=== PATIENT | male | born 1975 | race Caucasian/White ===

== ENCOUNTER 2018-02-12 13:45 | Emergency (ER) | payer BC, OTHER ==
[2018-02-12 15:30] LABS: BASO # 0.1 10^3/uL (0.0-0.2); BASO % 0.5 % (0.0-1.0); EOS # 0.2 10^3/uL (0.0-0.50); EOS % 1.6 % (0.0-3.0); HEMATOCRIT 45.1 % (42.0-52.0); HEMOGLOBIN 15.4 g/dl (13.5-17.5); IMMATURE GRANULOCYTE % 0.5 % (0-3.0); LYMPH # 2.3 10^3/uL (1.5-4.5); LYMPH % 20.9 % (24.0-44.0); MEAN CORPUSCULAR HEMOGLOBIN 26.6 pg (27.0-33.0); MEAN CORPUSCULAR HGB CONC 34.1 g/dl (32.0-36.5); MEAN CORPUSCULAR VOLUME 77.9 fl (80.0-96.0); MONO # 0.6 10^3/uL (0.0-0.8); MONO % 5.6 % (0.0-5.0); NEUTROPHILS # 7.8 10^3/uL (1.8-7.7); NEUTROPHILS % 70.9 % (36.0-66.0); PLATELET COUNT, AUTOMATED 248 10^3/uL (150-450); RED BLOOD COUNT 5.79 10^6/uL (4.30-6.10); RED CELL DISTRIBUTION WIDTH 13.7 % (11.5-14.5); WHITE BLOOD COUNT 10.9 10^3/uL (4.0-10.0)
[2018-02-12 16:03] LABS: ALBUMIN 4.4 GM/DL (3.2-5.2); ALBUMIN/GLOBULIN RATIO 1.26 (1.00-1.93); ALKALINE PHOSPHATASE 72 U/L (45-117); ALT/SGPT 44 U/L (12-78); ANION GAP 12 MEQ/L (8-16); AST/SGOT 29 U/L (7-37); BILIRUBIN,DIRECT < 0.1 MG/DL (0.0-0.2); BILIRUBIN,TOTAL 0.4 MG/DL (0.2-1.0); BLOOD UREA NITROGEN 17 MG/DL (7-18); CARBON DIOXIDE LEVEL 26 MEQ/L (21-32); CHLORIDE LEVEL 106 MEQ/L (98-107); CPK CREATINE PHOSPHOKINASE 180 U/L (39-308); CREATININE FOR GFR 1.32 MG/DL (0.70-1.30); GLOMERULAR FILTRATION RATE > 60.0 (>60); GLUCOSE, FASTING 166 MG/DL (70-100); LIPASE 218 U/L (73-393); MB/CK RELATIVE INDEX 1.17 (< OR =4); POTASSIUM SERUM 3.4 MEQ/L (3.5-5.1); SODIUM LEVEL 144 MEQ/L (136-145); TOTAL PROTEIN 7.9 GM/DL (6.4-8.2); TROPONIN I < 0.02 NG/ML (< 0.10)
[2018-02-12] MEDS: LORazepam 2 MG/ML VIAL (J2060) IV (16:07)
[2018-02-12] MEDS: MECLIZINE 25 MG TABLET PO ×2 (16:07→20:34)
[2018-02-12] MEDS: ONDANSETRON 4MG/2ML VIAL (J2405) IV (16:07)
[2018-02-12] MEDS: NS 1,000 ML IV (17:18)
[2018-02-12] MEDS: POTASSIUM CHLORIDE 10 MEQ SR TABLET PO (17:19)
[2018-02-12] MEDS ORDERED: ISOVUE-370 76% 100ML VIAL (Q9967) As Ordered (17:20)
[2018-02-12 17:55] LABS: INR 1.06; PROTHROMBIN TIME 13.9 SECONDS (12.1-14.4)
[2018-02-12] MEDS ORDERED: ONDANSETRON 4 MG ORAL DISINTEGRATING TAB (Q0162 PER 1MG) PO (20:00)
[2018-02-12] MEDS ORDERED: MECLIZINE 25 MG TABLET PO (20:00)
[2018-02-12] MEDS: ONDANSETRON 4 MG ORAL DISINTEGRATING TAB (Q0162 PER 1MG) PO (20:35)
== END 2018-02-12 20:45 | disposition home or self-care (01) ==
LOC: M ED 13:45
DX: R42 Dizziness and giddiness (principal); R07.89 Other chest pain; I10 Essential (primary) hypertension; R00.1 Bradycardia, unspecified; R78.5 Finding of other psychotropic drug in blood; F41.9 Anxiety disorder, unspecified; F32.9 Major depressive disorder, single episode, unspecified; F43.10 Post-traumatic stress disorder, unspecified; Z87.442 Personal history of urinary calculi; Z79.899 Other long term (current) drug therapy
CPT/HCPCS: J2405

== ENCOUNTER 2019-07-21 11:11 | Emergency (ER) | payer BC, OTHER ==
[~2019-07-21] VITALS: Ht 165.1 cm; Wt 107.4 kg
[~2019-07-21 11:11] MED LIST: GEMF600T5 PO; LISI-538 PO; LISI40TA PO; LOSA100T50 PO; MECL1TAB31 PO; METO1TAB87 PO; ZOFR4TAB16 PO; ZOLO100T PO
[2019-07-21 12:05] LABS: BASO % 0.4 % (0.0-1.0); EOS # 0.3 10^3/uL (0.0-0.5); EOS % 3.7 % (0.0-3.0); HEMATOCRIT 42.6 % (42.0-52.0); HEMOGLOBIN 14.6 g/dl (13.5-17.5); LYMPH # 0.9 10^3/uL (1.5-5.0); MEAN CORPUSCULAR HEMOGLOBIN 26.5 pg (27.0-33.0); MEAN CORPUSCULAR HGB CONC 34.3 g/dl (32.0-36.5); MEAN CORPUSCULAR VOLUME 77.3 fl (80.0-96.0); MONO # 0.3 10^3/uL (0.0-0.8); MONO % 3.7 % (0.0-5.0); NEUTROPHILS # 7.4 10^3/uL (1.5-8.5); NEUTROPHILS % 81.4 % (36.0-66.0); PLATELET COUNT, AUTOMATED 191 10^3/uL (150-450); RED BLOOD COUNT 5.51 10^6/uL (4.30-6.10); WHITE BLOOD COUNT 9.1 10^3/uL (4.0-10.0)
[2019-07-21 12:28] LABS: ALBUMIN 4.5 GM/DL (3.2-5.2); ALT/SGPT 52 U/L (12-78); BILIRUBIN,DIRECT 0.2 MG/DL (0.0-0.2); BILIRUBIN,TOTAL 0.7 MG/DL (0.2-1.0); BLOOD UREA NITROGEN 10 MG/DL (7-18); CALCIUM LEVEL 8.8 MG/DL (8.5-10.1); CARBON DIOXIDE LEVEL 32 MEQ/L (21-32); CHLORIDE LEVEL 103 MEQ/L (98-107); CREATININE FOR GFR 1.19 MG/DL (0.70-1.30); GLOMERULAR FILTRATION RATE > 60.0 (>60); GLUCOSE, FASTING 193 MG/DL (70-100); LIPASE 174 U/L (73-393); POTASSIUM SERUM 3.3 MEQ/L (3.5-5.1); SODIUM LEVEL 141 MEQ/L (136-145); TOTAL PROTEIN 7.3 GM/DL (6.4-8.2)
[2019-07-21] MEDS ORDERED: BUPR-321 PO (12:48)
[2019-07-21] MEDS ORDERED: AMLO5TAB6 (12:48)
[2019-07-21] MEDS ORDERED: MORPHINE 4 MG/ML 1ML VIAL/SYRINGE (J2270) IV ONE (13:15)
[2019-07-21] MEDS ORDERED: ONDANSETRON 4MG/2ML VIAL (J2405) IV ONE (13:15)
[2019-07-21] MEDS ORDERED: NS 1,000 ML IV ONE (13:15)
[2019-07-21] MEDS ORDERED: PANTOPRAZOLE 40MG INJ (PROTONIX) (C9113) IV ONE (13:15)
--- NOTE | 2019-07-21 13:48 | REP ---
Abdominal right upper quadrant ultrasound for upper abdominal pain: Comparison is the abdomen/pelvis CT of 02/12/2018. There is no cholelithiasis, gallbladder wall thickening or pericholecystic fluid. There is no intrahepatic or extrahepatic biliary duct dilatation. The common biliary duct measures 3.6 ml in diameter. The hepatic parenchyma is acoustically dense and difficult to penetrate. This is compatible with hepato steatosis. No hepatic masses are identified. The pancreas is mostly obscured by bowel gas. Right kidney measures 14 x 1 x 5 point of by 6 x 4 cm and is normal size. There is no right renal solid or cystic mass. There is no right renal hydronephrosis or calculus. There is no right upper quadrant abdominal ascites. Impression: There is no cholelithiasis, gallbladder wall thickening or pericholecystic fluid. The pancreas is obscured by bowel gas. Otherwise, negative right upper quadrant abdominal ultrasound. Electronically Signed by Steven Justice MD 07/21/2019 01:39 P
[2019-07-21] MEDS ORDERED: ISOVUE-370 76% 100ML VIAL (Q9967) As Ordered ONE (14:12)
--- NOTE | 2019-07-21 14:50 | REP ---
CT ABDOMEN PELVIS WITH IV BUT WITHOUT ORAL CONTRAST: HISTORY: Severe upper abdominal pain. Comparison CT study February 12, 2018. CT CONTRAST DOSE: 100 mL of intravenous Isovue [address] FINDINGS: Preliminary digital ict customer support officer radiograph demonstrates an unremarkable bowel gas pattern. The lung bases are clear. There is mild to moderate diffuse fatty infiltration of the liver. The liver is at the upper range of normal in size with a craniocaudal span in the midclavicular line of 16 cm. No focal liver lesion is seen. The spleen is moderately enlarged measuring this 17.9 cm in greatest anteroposterior dimension. No focal splenic lesion is appreciated. No adrenal lesion is observed on either side. No abnormality is noted in the pancreas or in the gallbladder. The kidneys enhance symmetrically. There is no evidence of intrarenal stone or hydronephrosis on either side. There is an accessory lower pole left renal artery. No retroperitoneal mass or adenopathy is observed. Small and large intestinal bowel loops are normal in the upper abdomen. Pelvic CT images demonstrate a few dystrophic calcifications in the prostate gland. Seminal vesicles and urinary bladder are unremarkable. A normal appendix is seen projecting medially from the cecum. There is no evidence of free air or free fluid. IMPRESSION: Hepatosplenomegaly. Fatty infiltration of the liver. No evidence of urinary tract calculus or hydronephrosis. Normal appendix seen. Electronically Signed by Johan Munoz MD 07/21/2019 03:53 P
[2019-07-21] MEDS ORDERED: GI COCKTAIL 50ML BTL(HYOSCYAMINE/MAALOX/LIDOCAINE VISCOUS)(1:3:1) PO ONE (15:15)
[2019-07-21] MEDS ORDERED: CARA1TAB6 PO (15:54)
[2019-07-21] MEDS ORDERED: PROT1TAB2 PO (15:54)
[2019-07-21 16:15] VITALS: BP 168/104
--- NOTE | 2019-07-22 16:29 | ED PDOC ---
Post-Departure Follow-Up certified letter sent to pt re formal read of ct abd/p. needs to be faxed to pcp . find out who pcp is and fax for fu. if no pcp refer to [facility] and fax Bela Mack MD Jul 22, 2019 16:29
== END 2019-07-21 16:19 | disposition home or self-care (01) ==
LOC: M ED 11:11
DX: K29.70 Gastritis, unspecified, without bleeding (principal); R16.2 Hepatomegaly with splenomegaly, not elsewhere classified; K76.0 Fatty (change of) liver, not elsewhere classified; I10 Essential (primary) hypertension; K21.9 Gastro-esophageal reflux disease without esophagitis; F43.10 Post-traumatic stress disorder, unspecified; Z79.899 Other long term (current) drug therapy
CPT/HCPCS: 74177; 76705; 80048; 80076; 81001; 83690; 85025; 96361; 96374; 96375; 99284; C9113; J2270; J2405; Q9967

== ENCOUNTER 2023-07-24 10:56 | Inpatient (IN) | payer BC, OTHER ==
[2023-07-24] VITALS (18 sets, daily range): BP systolic 133–214; BP diastolic 66–127; TEMP 96.3–97; O2SAT 87–98
[~2023-07-24] VITALS: Ht 162.6 cm; Wt 105.9 kg
[~2023-07-24 10:56] MED LIST changes: +AMLO1TAB24; +BUPR-364 PO; +CARA1TAB6 PO; -LISI-538 PO; +LISI20TA33 PO; -LISI40TA PO; +LISI40TA4 PO; +LOSA100T46 PO; -LOSA100T50 PO; +MECL-209 PO; -MECL1TAB31 PO; +PROT1TAB2 PO
[2023-07-24 12:08] LABS: BASO % 0.3 % (0.0-1.0); EOS # 0.2 10^3/uL (0.0-0.5); EOS % 2.5 % (0.0-3.0); HEMOGLOBIN 14.7 g/dl (13.5-17.5); LYMPH % 14.9 % (24.0-44.0); MEAN CORPUSCULAR HEMOGLOBIN 26.9 pg (27.0-33.0); MEAN CORPUSCULAR VOLUME 76.8 fl (80.0-96.0); MONO # 0.3 10^3/uL (0.0-0.8); MONO % 4.8 % (2.0-8.0); NEUTROPHILS # 5.3 10^3/uL (1.5-8.5); NEUTROPHILS % 77.1 % (36.0-66.0); PLATELET COUNT, AUTOMATED 144 10^3/uL (150-450); RED BLOOD COUNT 5.47 10^6/uL (4.30-6.10); WHITE BLOOD COUNT 6.9 10^3/uL (4.0-10.0)
[2023-07-24] MEDS ORDERED: LOSA50TA28 PO (12:08)
[2023-07-24 12:36] LABS: CK-MB VALUE MASS 4.2 NG/ML (<3.6); LIPASE 67 U/L (12-53)
[2023-07-24 12:38] LABS: ALBUMIN 4.1 G/DL (3.2-5.2); ALKALINE PHOSPHATASE 70 U/L (46-116); ALT/SGPT 36 U/L (7.0-40); AST/SGOT 32 U/L (<34); BILIRUBIN,DIRECT 0.3 MG/DL (<0.4); BILIRUBIN,TOTAL 1.1 MG/DL (0.3-1.2); BLOOD UREA NITROGEN 13 MG/DL (9-23); CALCIUM LEVEL 8.7 MG/DL (8.5-10.1); CARBON DIOXIDE LEVEL 35 MMOL/L (20-31); CHLORIDE LEVEL 102 MMOL/L (98-107); CREATININE FOR GFR 1.16 MG/DL (0.70-1.30); GLOMERULAR FILTRATION RATE > 60.0 (>60); GLUCOSE, FASTING 179 MG/DL (60-100); POTASSIUM SERUM 3.1 MMOL/L (3.5-5.1); SODIUM LEVEL 142 MMOL/L (136-145); TOTAL PROTEIN 6.9 G/DL (5.7-8.2)
[2023-07-24 12:40] LABS: FREE T4 1.06 NG/DL (0.89-1.76); THYROID STIMULATING HORMONE 3.136 uIU/ML (0.55-4.78)
[2023-07-24 12:44] LABS: CPK CREATINE PHOSPHOKINASE 272 U/L (46-171); MB/CK RELATIVE INDEX 1.54 (< OR =4)
[2023-07-24 13:41] LABS: CK-MB VALUE MASS 3.8 NG/ML (<3.6)
[2023-07-24 13:45] LABS: MB/CK RELATIVE INDEX 1.61 (< OR =4)
[2023-07-24] MEDS: SPIRONOLACTONE 25 MG TAB PO ONE (15:33)
[2023-07-24] MEDS: hydrALAZINE 20MG/ML 1ML VIAL IV STA (16:35)
[2023-07-24] MEDS ORDERED: ISOVUE-370 76% 100ML VIAL As Ordered ONE (16:37)
[2023-07-24] MEDS: LABETALOL 100MG/20ML VIAL IV PRN (17:22)
[2023-07-24] MEDS ORDERED: LEVALBUTEROL 1.25MG 0.5ML CONCENTRATE NEB NEB PRN (17:25)
[2023-07-24] MEDS ORDERED: D5W/0.9% SODIUM CHLORIDE 1,000 ML IV SCH (17:25)
[2023-07-24] MEDS ORDERED: ONDANSETRON 4MG 2ML VIAL IV PRN (17:25)
[2023-07-24] MEDS ORDERED: PERCOCET 5MG/325MG TAB PO PRN ×2 (17:25)
[2023-07-24] MEDS ORDERED: BISACODYL 10MG SUPP PR PRN (17:25)
[2023-07-24 17:38] LABS: CHOLESTEROL LEVEL 219 MG/DL (<200); CHOLESTEROL RISK RATIO 7.57 (<5); HDL CHOLESTEROL 28.9 MG/DL (>40); LDL CHOLESTEROL 131.5 MG/DL (<100); NON-HDL-C 190.1 MG/DL; TRIGLYCERIDES LEVEL 293 MG/DL (<150)
[2023-07-24] MEDS: KCL 20MEQ IN D5/NS 1000ML 1,000 ML IV SCH (18:11)
[2023-07-24 18:20] LABS: ABG BASE EXCESS 4.6 (-2.0-2.0); ABG O2 SATURATION 94.7 % (95.0-99.0); ABG PARTIAL PRESSURE CO2 37.6 mmHg (35.0-45.0); ABG PARTIAL PRESSURE O2 66.4 mmHg (75.0-100.0); ABG STANDARD HCO3 28.5 MMOL/L. (22.0-26.0); ABG TOTAL CO2 29.2 MMOL/L (22.0-29.0)
[2023-07-24] MEDS ORDERED: LORazepam 2 MG/ML 1ML VIAL IV ONE (18:35)
[2023-07-24] MEDS: ALPRAZolam 0.5 MG TAB PO PRN (18:44)
[2023-07-24] MEDS: LEVALBUTEROL 1.25MG 0.5ML CONCENTRATE NEB NEB SCH (19:27)
[2023-07-24] MEDS: HEPARIN SOD (PORCINE) 5000UNITS/ML 1ML VIAL/SYRINGE SC SCH (20:09)
[2023-07-24] MEDS: niCARdipine IV 40 MG in IV 1 EA IV SCH (20:15)
[2023-07-24] MEDS: DOCUSATE SODIUM 100MG CAPSULE PO SCH (20:17)
[2023-07-24 22:28] LABS: BLOOD UREA NITROGEN 14 MG/DL (9-23); CALCIUM LEVEL 8.3 MG/DL (8.5-10.1); CARBON DIOXIDE LEVEL 33 MMOL/L (20-31); CHLORIDE LEVEL 106 MMOL/L (98-107); CREATININE FOR GFR 1.14 MG/DL (0.70-1.30); GLOMERULAR FILTRATION RATE > 60.0 (>60); GLUCOSE, FASTING 152 MG/DL (60-100); MAGNESIUM LEVEL 1.7 MG/DL (1.8-2.4); POTASSIUM SERUM 2.8 MMOL/L (3.5-5.1); SODIUM LEVEL 141 MMOL/L (136-145)
[2023-07-24] MEDS: POTASSIUM CHLORIDE 10MEQ SR TABLET PO ONE (23:09)
[2023-07-24] MEDS: MAG SULF 1GM/100ML (MAG RUN) 1 GM in IV 1 EA IV ONE (23:09)
[2023-07-24] MEDS: KCL 40MEQ IN D5/NS 1000ML 1,000 ML IV SCH (23:22)
[2023-07-25] VITALS (32 sets, daily range): BP systolic 139–196; BP diastolic 70–110; TEMP 97–98.6; O2SAT 90–100
[2023-07-25 04:27] LABS: BASO % 0.5 % (0.0-1.0); EOS # 0.1 10^3/uL (0.0-0.5); EOS % 1.6 % (0.0-3.0); HEMATOCRIT 37.8 % (42.0-52.0); LYMPH # 1.2 10^3/uL (1.5-5.0); LYMPH % 13.5 % (24.0-44.0); MEAN CORPUSCULAR HEMOGLOBIN 26.4 pg (27.0-33.0); MEAN CORPUSCULAR HGB CONC 34.4 g/dl (32.0-36.5); MEAN CORPUSCULAR VOLUME 76.8 fl (80.0-96.0); MONO # 0.6 10^3/uL (0.0-0.8); MONO % 6.5 % (2.0-8.0); NEUTROPHILS # 6.8 10^3/uL (1.5-8.5); NEUTROPHILS % 77.7 % (36.0-66.0); PLATELET COUNT, AUTOMATED 139 10^3/uL (150-450); RED BLOOD COUNT 4.92 10^6/uL (4.30-6.10); WHITE BLOOD COUNT 8.7 10^3/uL (4.0-10.0)
[2023-07-25 05:01] LABS: BLOOD UREA NITROGEN 12 MG/DL (9-23); CALCIUM LEVEL 7.8 MG/DL (8.5-10.1); CARBON DIOXIDE LEVEL 33 MMOL/L (20-31); CHLORIDE LEVEL 107 MMOL/L (98-107); CREATININE FOR GFR 1.19 MG/DL (0.70-1.30); GLOMERULAR FILTRATION RATE > 60.0 (>60); GLUCOSE, FASTING 156 MG/DL (60-100); POTASSIUM SERUM 2.8 MMOL/L (3.5-5.1); SODIUM LEVEL 143 MMOL/L (136-145)
[2023-07-25] MEDS: POTASSIUM CHLORIDE 10MEQ SR TABLET PO ONE ×2 (05:50→08:13)
[2023-07-25] MEDS: PANTOPRAZOLE 40MG TAB (PROTONIX) PO SCH (08:13)
[2023-07-25] MEDS: SERTRALINE 100 MG TAB PO SCH (08:13)
[2023-07-25] MEDS: MOM 30ML SUSPENSION UDC PO SCH (08:20)
[2023-07-25] MEDS ORDERED: HOME MED LIST COMPLETE! XX SCH (09:10)
[2023-07-25] MEDS: SPIRONOLACTONE 25 MG TAB PO SCH (09:37)
[2023-07-25] MEDS: KCL 10MEQ/100ML SWI (KRUN) 10 MEQ in IV 1 EA IV SCH (09:38)
[2023-07-25] MEDS: ACETAMINOPHEN TAB 650MG DOSE (2X325MG) PO PRN (10:39)
[2023-07-25] MEDS: COLCHICINE 0.6 MG TABLET PO SCH (11:35)
[2023-07-25] MEDS: hydrALAZINE 20MG/ML 1ML VIAL IV PRN (11:36)
[2023-07-25] MEDS ORDERED: LIDOCAINE 1% MDV 20ML VIAL As Ordered ONE (12:50)
[2023-07-25] MEDS: cloNIDine 0.2 MG TAB PO ONE (14:29)
[2023-07-25] MEDS: **hydrALAZINE HCL** 25 MG TAB PO SCH (14:29)
[2023-07-25] MEDS ORDERED: POTASSIUM CHLORIDE 10MEQ SR TABLET PO SCH (16:00)
[2023-07-25 17:54] LABS: BLOOD UREA NITROGEN 12 MG/DL (9-23); CALCIUM LEVEL 8.6 MG/DL (8.5-10.1); CARBON DIOXIDE LEVEL 30 MMOL/L (20-31); CHLORIDE LEVEL 104 MMOL/L (98-107); CREATININE FOR GFR 1.09 MG/DL (0.70-1.30); GLOMERULAR FILTRATION RATE > 60.0 (>60); GLUCOSE, FASTING 154 MG/DL (60-100); POTASSIUM SERUM 3.4 MMOL/L (3.5-5.1); SODIUM LEVEL 143 MMOL/L (136-145)
[2023-07-25] MEDS: LEVALBUTEROL 1.25MG 0.5ML CONCENTRATE NEB NEB SCH (19:34)
[2023-07-25] MEDS: POTASSIUM CHLORIDE 10MEQ SR TABLET PO SCH (20:16)
[2023-07-25] MEDS: LOSARTAN 50MG TABLET PO SCH (20:16)
[2023-07-25] MEDS: cloNIDine 0.1MG TABLET PO SCH (21:12)
[2023-07-26] VITALS (8 sets, daily range): BP systolic 166–205; BP diastolic 89–107; TEMP 97.5–98.6; O2SAT 94–99
[2023-07-26 05:23] LABS: BASO % 0.4 % (0.0-1.0); EOS # 0.2 10^3/uL (0.0-0.5); EOS % 2.3 % (0.0-3.0); HEMOGLOBIN 13.3 g/dl (13.5-17.5); LYMPH # 1.4 10^3/uL (1.5-5.0); LYMPH % 19.5 % (24.0-44.0); MEAN CORPUSCULAR HEMOGLOBIN 26.1 pg (27.0-33.0); MEAN CORPUSCULAR HGB CONC 33.3 g/dl (32.0-36.5); MEAN CORPUSCULAR VOLUME 78.6 fl (80.0-96.0); MONO # 0.5 10^3/uL (0.0-0.8); MONO % 6.5 % (2.0-8.0); NEUTROPHILS % 70.7 % (36.0-66.0); PLATELET COUNT, AUTOMATED 130 10^3/uL (150-450); RED BLOOD COUNT 5.09 10^6/uL (4.30-6.10); WHITE BLOOD COUNT 7.1 10^3/uL (4.0-10.0)
[2023-07-26 05:56] LABS: BLOOD UREA NITROGEN 14 MG/DL (9-23); CALCIUM LEVEL 8.5 MG/DL (8.5-10.1); CARBON DIOXIDE LEVEL 32 MMOL/L (20-31); CHLORIDE LEVEL 107 MMOL/L (98-107); CREATININE FOR GFR 1.17 MG/DL (0.70-1.30); GLOMERULAR FILTRATION RATE > 60.0 (>60); GLUCOSE, FASTING 135 MG/DL (60-100); MAGNESIUM LEVEL 1.9 MG/DL (1.8-2.4); POTASSIUM SERUM 3.8 MMOL/L (3.5-5.1); SODIUM LEVEL 144 MMOL/L (136-145)
[2023-07-26] MEDS: FUROSEMIDE 40MG/4ML VIAL IV ONE (08:25)
[2023-07-26] MEDS: SPIRONOLACTONE 50 MG TAB PO SCH (08:26)
[2023-07-27] VITALS (9 sets, daily range): BP systolic 145–191; BP diastolic 77–94; TEMP 96.8–98.6; O2SAT 97–99
[2023-07-27 05:01] LABS: BASO % 0.4 % (0.0-1.0); EOS # 0.2 10^3/uL (0.0-0.5); EOS % 2.5 % (0.0-3.0); HEMATOCRIT 41.4 % (42.0-52.0); HEMOGLOBIN 13.7 g/dl (13.5-17.5); LYMPH # 1.3 10^3/uL (1.5-5.0); LYMPH % 15.9 % (24.0-44.0); MEAN CORPUSCULAR HEMOGLOBIN 26.4 pg (27.0-33.0); MEAN CORPUSCULAR HGB CONC 33.1 g/dl (32.0-36.5); MEAN CORPUSCULAR VOLUME 79.8 fl (80.0-96.0); MONO # 0.5 10^3/uL (0.0-0.8); MONO % 5.5 % (2.0-8.0); NEUTROPHILS # 6.2 10^3/uL (1.5-8.5); NEUTROPHILS % 75.3 % (36.0-66.0); PLATELET COUNT, AUTOMATED 147 10^3/uL (150-450); RED BLOOD COUNT 5.19 10^6/uL (4.30-6.10); WHITE BLOOD COUNT 8.2 10^3/uL (4.0-10.0)
[2023-07-27 05:23] LABS: BLOOD UREA NITROGEN 19 MG/DL (9-23); CALCIUM LEVEL 8.7 MG/DL (8.5-10.1); CARBON DIOXIDE LEVEL 30 MMOL/L (20-31); CHLORIDE LEVEL 105 MMOL/L (98-107); CREATININE FOR GFR 1.31 MG/DL (0.70-1.30); GLOMERULAR FILTRATION RATE > 60.0 (>60); GLUCOSE, FASTING 206 MG/DL (60-100); POTASSIUM SERUM 3.4 MMOL/L (3.5-5.1); SODIUM LEVEL 142 MMOL/L (136-145)
[2023-07-27] MEDS: **hydrALAZINE** 50 MG TAB PO SCH (11:16)
[2023-07-27] MEDS: cloNIDine 0.1MG TABLET PO SCH (18:00)
[2023-07-28 06:57] VITALS: BP 172/96; TEMP 98.6; O2SAT 96
[2023-07-28 07:37] LABS: BASO % 0.1 % (0.0-1.0); EOS # 0.2 10^3/uL (0.0-0.5); EOS % 2.6 % (0.0-3.0); HEMATOCRIT 41.9 % (42.0-52.0); HEMOGLOBIN 14.1 g/dl (13.5-17.5); LYMPH # 1.4 10^3/uL (1.5-5.0); LYMPH % 19.2 % (24.0-44.0); MEAN CORPUSCULAR HEMOGLOBIN 26.8 pg (27.0-33.0); MEAN CORPUSCULAR HGB CONC 33.7 g/dl (32.0-36.5); MEAN CORPUSCULAR VOLUME 79.7 fl (80.0-96.0); MONO # 0.4 10^3/uL (0.0-0.8); MONO % 5.8 % (2.0-8.0); NEUTROPHILS # 5.4 10^3/uL (1.5-8.5); NEUTROPHILS % 71.9 % (36.0-66.0); PLATELET COUNT, AUTOMATED 155 10^3/uL (150-450); RED BLOOD COUNT 5.26 10^6/uL (4.30-6.10); WHITE BLOOD COUNT 7.5 10^3/uL (4.0-10.0)
[2023-07-28 08:06] LABS: BLOOD UREA NITROGEN 17 MG/DL (9-23); CALCIUM LEVEL 8.8 MG/DL (8.5-10.1); CARBON DIOXIDE LEVEL 30 MMOL/L (20-31); CHLORIDE LEVEL 107 MMOL/L (98-107); CREATININE FOR GFR 1.23 MG/DL (0.70-1.30); GLOMERULAR FILTRATION RATE > 60.0 (>60); GLUCOSE, FASTING 126 MG/DL (60-100); POTASSIUM SERUM 4.1 MMOL/L (3.5-5.1); SODIUM LEVEL 143 MMOL/L (136-145)
[2023-07-28] MEDS ORDERED: **hydrALAZINE** 50 MG TAB PO SCH (12:00)
[2023-07-28 12:11] VITALS: BP 160/101
[2023-07-28 15:42] VITALS: BP 152/98; TEMP 98.2; O2SAT 96
[2023-07-28] MEDS: SPIRONOLACTONE 50 MG TAB PO SCH (17:20)
[2023-07-28 20:00] VITALS: BP 148/97; TEMP 97; O2SAT 96
[2023-07-28] MEDS: **hydrALAZINE** 50 MG TAB PO SCH (20:12)
[2023-07-29 06:00] VITALS: BP 161/106; TEMP 97.3; O2SAT 98
[2023-07-29 06:23] LABS: BASO % 0.4 % (0.0-1.0); EOS # 0.2 10^3/uL (0.0-0.5); EOS % 2.8 % (0.0-3.0); HEMATOCRIT 41.9 % (42.0-52.0); HEMOGLOBIN 14.3 g/dl (13.5-17.5); LYMPH # 1.5 10^3/uL (1.5-5.0); LYMPH % 20.9 % (24.0-44.0); MEAN CORPUSCULAR HEMOGLOBIN 26.9 pg (27.0-33.0); MEAN CORPUSCULAR HGB CONC 34.1 g/dl (32.0-36.5); MEAN CORPUSCULAR VOLUME 78.9 fl (80.0-96.0); MONO # 0.4 10^3/uL (0.0-0.8); NEUTROPHILS # 5.1 10^3/uL (1.5-8.5); NEUTROPHILS % 70.5 % (36.0-66.0); PLATELET COUNT, AUTOMATED 161 10^3/uL (150-450); RED BLOOD COUNT 5.31 10^6/uL (4.30-6.10); WHITE BLOOD COUNT 7.2 10^3/uL (4.0-10.0)
[2023-07-29 06:54] LABS: BLOOD UREA NITROGEN 17 MG/DL (9-23); CALCIUM LEVEL 8.5 MG/DL (8.5-10.1); CARBON DIOXIDE LEVEL 29 MMOL/L (20-31); CHLORIDE LEVEL 107 MMOL/L (98-107); CREATININE FOR GFR 1.18 MG/DL (0.70-1.30); GLOMERULAR FILTRATION RATE > 60.0 (>60); GLUCOSE, FASTING 112 MG/DL (60-100); POTASSIUM SERUM 3.8 MMOL/L (3.5-5.1); SODIUM LEVEL 141 MMOL/L (136-145)
[2023-07-29 09:49] VITALS: BP 154/102
[2023-07-29] MEDS ORDERED: AMLO1TAB25 PO (11:11)
[2023-07-29] MEDS ORDERED: ALDA50TA2 PO (11:11)
[2023-07-29] MEDS ORDERED: LOSA50TA28 PO (11:11)
[2023-07-29] MEDS ORDERED: COLC0.6T47 PO (11:11)
[2023-07-29] MEDS ORDERED: HYDR50TA46 PO (11:14)
[2023-07-30 19:08] LABS: RENIN LEVEL 1.822 ng/mL/hr (0.167-5.380)
== END 2023-07-29 12:15 | disposition home or self-care (01) | DRG 264 ==
LOC: M ED 10:56 → M ED INP 17:22 → M ICU 18:10 → M MS5PR 07-27 13:28
PROVIDERS: ADMIT Internal Medicine; ATTEND Internal Medicine Nephrology
PROC: 07B53ZX Excision of Right Axillary Lymphatic, Percutaneous Approach, Diagnostic (ICD-10-PCS; principal; 2023-07-25 13:30)
DX: I16.0 Hypertensive urgency (principal); I31.39 Other pericardial effusion (noninflammatory); I50.1 Left ventricular failure, unspecified; Z68.41 Body mass index [BMI] 40.0-44.9, adult; I16.1 Hypertensive emergency; E26.9 Hyperaldosteronism, unspecified; I11.0 Hypertensive heart disease with heart failure; D69.6 Thrombocytopenia, unspecified; F43.10 Post-traumatic stress disorder, unspecified; E87.6 Hypokalemia; E66.01 Morbid (severe) obesity due to excess calories; I27.20 Pulmonary hypertension, unspecified; F32.A Depression, unspecified; F41.9 Anxiety disorder, unspecified; G47.33 Obstructive sleep apnea (adult) (pediatric); Z87.442 Personal history of urinary calculi; Z91.148 Patient's other noncompliance with medication regimen for other reason; R59.1 Generalized enlarged lymph nodes

== ENCOUNTER → 2023-09-10 | Outpatient (CLI) | payer BC ==
[~2023-09-10] MED LIST changes: +ALDA50TA2 PO; +AMLO1TAB25 PO; +BUSP15TA47 PO; +CHLO125TA PO; +COLC0.6T47 PO; +FAMO20TA PO; +HYDR50TA46 PO; +LOSA50TA28 PO; +TRAZ-252 PO
== END ==
LOC: M PLAIMG 13:01
PROVIDERS: ATTEND Internal Medicine Critical Care Medicine
DX: R91.8 Other nonspecific abnormal finding of lung field (principal)

== ENCOUNTER 2023-09-11 10:59 | Emergency (ER) | payer BC, OTHER ==
[~2023-09-11] VITALS: Ht 162.6 cm; Wt 104.6 kg
[~2023-09-11 10:59] MED LIST changes: -BUSP15TA47 PO; -CHLO125TA PO; -FAMO20TA PO; -TRAZ-252 PO
[2023-09-11 11:00] VITALS: TEMP 97.2
[2023-09-11 11:55] LABS: BASO % 0.3 % (0.0-1.0); EOS # 0.2 10^3/uL (0.0-0.5); HEMATOCRIT 35.7 % (42.0-52.0); HEMOGLOBIN 12.6 g/dl (13.5-17.5); LYMPH % 13.1 % (24.0-44.0); MEAN CORPUSCULAR HEMOGLOBIN 27.4 pg (27.0-33.0); MEAN CORPUSCULAR HGB CONC 35.3 g/dl (32.0-36.5); MEAN CORPUSCULAR VOLUME 77.6 fl (80.0-96.0); MONO # 0.5 10^3/uL (0.0-0.8); MONO % 6.7 % (2.0-8.0); NEUTROPHILS # 5.7 10^3/uL (1.5-8.5); PLATELET COUNT, AUTOMATED 136 10^3/uL (150-450); WHITE BLOOD COUNT 7.4 10^3/uL (4.0-10.0)
[2023-09-11 12:08] LABS: INR 1.15; PROTHROMBIN TIME 14.3 SECONDS (12.5-14.5)
[2023-09-11] MEDS ORDERED: FAMO20TA PO (12:09)
[2023-09-11] MEDS ORDERED: BUSP15TA47 PO (12:09)
[2023-09-11] MEDS ORDERED: TRAZ-252 PO (12:09)
[2023-09-11 12:25] LABS: ALBUMIN 4.4 G/DL (3.2-5.2); BILIRUBIN,DIRECT 0.1 MG/DL (<0.4); BILIRUBIN,TOTAL 0.5 MG/DL (0.3-1.2); CALCIUM LEVEL 9.7 MG/DL (8.5-10.1); CK-MB VALUE MASS 3.2 NG/ML (<3.6); CREATININE FOR GFR 1.98 MG/DL (0.70-1.30); GLOMERULAR FILTRATION RATE 38.8 (>60); POTASSIUM SERUM 5.6 MMOL/L (3.5-5.1); TOTAL PROTEIN 7.5 G/DL (5.7-8.2)
[2023-09-11 12:30] LABS: MB/CK RELATIVE INDEX 1.29 (< OR =4)
[2023-09-11] MEDS: NS 1,000 ML IV ONE ×2 (13:10→15:30)
[2023-09-11 13:27] LABS: CK-MB VALUE MASS 2.6 NG/ML (<3.6)
[2023-09-11 13:33] LABS: MB/CK RELATIVE INDEX 1.42 (< OR =4)
[2023-09-11] MEDS ORDERED: ISOVUE-370 76% 100ML VIAL As Ordered ONE (14:41)
[2023-09-11 17:54] LABS: CREATININE FOR GFR 1.74 MG/DL (0.70-1.30); POTASSIUM SERUM 5.8 MMOL/L (3.5-5.1)
[2023-09-11] MEDS ORDERED: LOSA50TA28 PO (18:42)
[2023-09-11] MEDS ORDERED: CHLO125TA PO (18:42)
[2023-09-11] MEDS: CHLORTHALIDONE 25 MG TAB PO ONE (18:44)
[2023-09-11] MEDS: PATIROMER SORBITEX CALCIUM 8.4 GM POWDER PACKET (VELTASSA) PO ONE (18:44)
[2023-09-11 18:45] VITALS: BP 154/90; O2SAT 97
== END 2023-09-11 19:00 | disposition home or self-care (01) ==
LOC: M ED 10:59
DX: R07.9 Chest pain, unspecified (principal); N17.9 Acute kidney failure, unspecified; E87.5 Hyperkalemia; I10 Essential (primary) hypertension; E78.5 Hyperlipidemia, unspecified; K21.9 Gastro-esophageal reflux disease without esophagitis; F43.10 Post-traumatic stress disorder, unspecified; F41.9 Anxiety disorder, unspecified; F32.9 Major depressive disorder, single episode, unspecified; Z87.442 Personal history of urinary calculi; Z79.899 Other long term (current) drug therapy; Z79.811 Long term (current) use of aromatase inhibitors; Z79.83 Long term (current) use of bisphosphonates; Z79.1 Long term (current) use of non-steroidal anti-inflammatories (NSAID)
CPT/HCPCS: 71045; 71275; 80047; 80048; 80076; 82550; 82553; 83690; 84484; 85025; 85610; 93005; 93041; 93971; 94760; 96360; 96361; 99285; Q9967

== ENCOUNTER → 2023-09-14 | Outpatient (CLI) | payer OTHER, BC ==
[~2023-09-14] MED LIST changes: +BUSP15TA47 PO; +CHLO125TA PO; +FAMO20TA PO; +TRAZ-252 PO
[2023-09-14 14:45] LABS: CALCIUM LEVEL 8.6 MG/DL (8.5-10.1); CREATININE FOR GFR 1.69 MG/DL (0.70-1.30); GLOMERULAR FILTRATION RATE 46.5 (>60); POTASSIUM SERUM 4.4 MMOL/L (3.5-5.1)
== END ==
LOC: M LAB 12:41
PROVIDERS: ATTEND Emergency Medicine
DX: N17.9 Acute kidney failure, unspecified (principal)

== ENCOUNTER → 2023-09-20 | Outpatient (CLI) | payer BC, OTHER ==
[2023-09-20 18:45] LABS: CREATININE FOR GFR 1.73 MG/DL (0.70-1.30); GLOMERULAR FILTRATION RATE 45.3 (>60)
== END ==
LOC: M LAB 16:20
PROVIDERS: ATTEND Internal Medicine Cardiovascular Disease
DX: I10 Essential (primary) hypertension (principal)

== ENCOUNTER → 2023-11-12 | Outpatient (CLI) | payer OTHER, BC ==
[2023-11-12 10:26] LABS: ALBUMIN 4.4 G/DL (3.2-5.2); BILIRUBIN,TOTAL 0.6 MG/DL (0.3-1.2); CALCIUM LEVEL 9.1 MG/DL (8.5-10.1); CREATININE FOR GFR 2.85 MG/DL (0.70-1.30); GLOMERULAR FILTRATION RATE 25.5 (>60); POTASSIUM SERUM 3.1 MMOL/L (3.5-5.1); TOTAL PROTEIN 6.9 G/DL (5.7-8.2)
== END ==
LOC: M RAD 07:57
PROVIDERS: ATTEND Internal Medicine Cardiovascular Disease
DX: I15.0 Renovascular hypertension (principal); I10 Essential (primary) hypertension

== ENCOUNTER → 2024-01-04 | Outpatient (CLI) | payer BC ==
[2024-01-04 10:18] LABS: HEMOGLOBIN A1c 8.7 % (4.0-6.0)
[2024-01-04 10:33] LABS: ALBUMIN 4.4 G/DL (3.2-5.2); BILIRUBIN,TOTAL 0.5 MG/DL (0.3-1.2); CALCIUM LEVEL 9.5 MG/DL (8.5-10.1); CREATININE FOR GFR 1.93 MG/DL (0.70-1.30); GLOMERULAR FILTRATION RATE 39.9 (>60); POTASSIUM SERUM 4.7 MMOL/L (3.5-5.1); TOTAL PROTEIN 7.1 G/DL (5.7-8.2)
== END ==
LOC: M LAB 09:39
PROVIDERS: ATTEND Registered Nurse
DX: E11.69 Type 2 diabetes mellitus with other specified complication (principal)

== ENCOUNTER → 2024-01-04 | Outpatient (CLI) | payer BC | LOC: M RAD 09:36 | PROVIDERS: ATTEND Internal Medicine Nephrology | DX: I70.1 Atherosclerosis of renal artery (principal) | CPT/HCPCS: 78707; A9562 ==

== ENCOUNTER → 2024-04-04 | Outpatient (CLI) | payer BC ==
[2024-04-04 15:45] LABS: C REACTIVE PROTEIN QUANTITATIV 0.8 MG/DL (<1.0)
[2024-04-04 15:46] LABS: CALCIUM LEVEL 9.2 MG/DL (8.5-10.1); CREATININE FOR GFR 1.84 MG/DL (0.70-1.30); GLOMERULAR FILTRATION RATE 42.2 (>60); POTASSIUM SERUM 3.9 MMOL/L (3.5-5.1)
== END ==
LOC: M LAB 14:35
PROVIDERS: ATTEND Internal Medicine Critical Care Medicine
DX: I27.20 Pulmonary hypertension, unspecified (principal)

== ENCOUNTER → 2024-04-04 | Outpatient (CLI) | payer BC ==
[2024-04-04 15:46] LABS: BILIRUBIN,TOTAL 0.4 MG/DL (0.3-1.2); CALCIUM LEVEL 9.2 MG/DL (8.5-10.1); CREATININE FOR GFR 1.79 MG/DL (0.70-1.30); GLOMERULAR FILTRATION RATE 43.5 (>60); POTASSIUM SERUM 3.9 MMOL/L (3.5-5.1); TOTAL PROTEIN 7.1 G/DL (5.7-8.2)
[2024-04-04 15:48] LABS: HEMOGLOBIN A1c 5.7 % (4.0-6.0)
== END ==
LOC: M LAB 14:37
PROVIDERS: ATTEND Registered Nurse
DX: E11.69 Type 2 diabetes mellitus with other specified complication (principal)

== ENCOUNTER → 2024-09-05 | Outpatient (CLI) | payer BC ==
[2024-09-05 11:51] LABS: HEMOGLOBIN A1c 5.5 % (4.0-6.0)
[2024-09-05 11:59] LABS: ALBUMIN 3.9 G/DL (3.2-5.2); ALKALINE PHOSPHATASE 105 U/L (40-129); ALT/SGPT 35 U/L (7.0-40); AST/SGOT 19 U/L (<34); BILIRUBIN,TOTAL 0.4 MG/DL (0.3-1.2); BLOOD UREA NITROGEN 16 MG/DL (9-23); CALCIUM LEVEL 8.8 MG/DL (8.5-10.1); CARBON DIOXIDE LEVEL 30 MMOL/L (20-31); CHLORIDE LEVEL 102 MMOL/L (98-107); CHOLESTEROL LEVEL 203 MG/DL (<200); CHOLESTEROL RISK RATIO 7.77 (<5); CREATININE FOR GFR 1.72 MG/DL (0.70-1.30); GLOMERULAR FILTRATION RATE 48.4 (>60); GLUCOSE, FASTING 186 MG/DL (60-100); HDL CHOLESTEROL 26.1 MG/DL (>40); NON-HDL-C 176.9 MG/DL; POTASSIUM SERUM 3.8 MMOL/L (3.5-5.1); SODIUM LEVEL 139 MMOL/L (136-145); TOTAL PROTEIN 6.6 G/DL (5.7-8.2); TRIGLYCERIDES LEVEL 743 MG/DL (<150)
== END ==
LOC: M LAB 10:58
PROVIDERS: ATTEND Internal Medicine Cardiovascular Disease
DX: E78.5 Hyperlipidemia, unspecified (principal); I10 Essential (primary) hypertension; E11.9 Type 2 diabetes mellitus without complications

== ENCOUNTER → 2024-10-14 | Outpatient (CLI) | payer BC ==
[2024-10-14 09:57] LABS: CHOLESTEROL LEVEL 127 MG/DL (<200); CHOLESTEROL RISK RATIO 4.47 (<5); HDL CHOLESTEROL 28.4 MG/DL (>40); NON-HDL-C 98.6 MG/DL; TRIGLYCERIDES LEVEL 413 MG/DL (<150)
== END ==
LOC: M LAB 08:37
PROVIDERS: ATTEND Internal Medicine Cardiovascular Disease
DX: E78.2 Mixed hyperlipidemia (principal)

== ENCOUNTER → 2024-10-14 | Outpatient (CLI) | payer BC ==
[2024-10-14 09:51] LABS: HEMOGLOBIN A1c 6.5 % (4.0-6.0)
[2024-10-14 09:58] LABS: ALBUMIN 4.4 G/DL (3.2-5.2); ALKALINE PHOSPHATASE 93 U/L (40-129); ALT/SGPT 59 U/L (7.0-40); AST/SGOT 33 U/L (<34); BILIRUBIN,TOTAL 0.5 MG/DL (0.3-1.2); BLOOD UREA NITROGEN 20 MG/DL (9-23); CALCIUM LEVEL 9.4 MG/DL (8.5-10.1); CARBON DIOXIDE LEVEL 29 MMOL/L (20-31); CHLORIDE LEVEL 104 MMOL/L (98-107); CHOLESTEROL LEVEL 131 MG/DL (<200); CHOLESTEROL RISK RATIO 4.58 (<5); CREATININE FOR GFR 1.76 MG/DL (0.70-1.30); GLOMERULAR FILTRATION RATE 47.1 (>60); GLUCOSE, FASTING 144 MG/DL (60-100); HDL CHOLESTEROL 28.6 MG/DL (>40); NON-HDL-C 102.4 MG/DL; POTASSIUM SERUM 4.1 MMOL/L (3.5-5.1); SODIUM LEVEL 142 MMOL/L (136-145); TOTAL PROTEIN 6.9 G/DL (5.7-8.2); TRIGLYCERIDES LEVEL 426 MG/DL (<150)
== END ==
LOC: M LAB 08:34
PROVIDERS: ATTEND Registered Nurse
DX: E11.69 Type 2 diabetes mellitus with other specified complication (principal); E78.2 Mixed hyperlipidemia

== ENCOUNTER 2025-03-24 09:33 | Emergency (ER) | payer OTHER, BC ==
[~2025-03-24] VITALS: Ht 165.1 cm; Wt 102.0 kg
[~2025-03-24 09:33] MED LIST changes: -COLC0.6T47 PO; +COLC0.6T53 PO; +LISI40TA10 PO; -LISI40TA4 PO
[2025-03-24 10:29] LABS: VENOUS BASE EXCESS -3.1 (-2.0-2.0); VENOUS HCO3 22.5 MMOL/L (23.0-27.0); VENOUS O2 SATURATION 92.6 % (60.0-80.0); VENOUS PARTIAL PRESSURE CO2 42.2 mmHg (38.0-50.0); VENOUS PARTIAL PRESSURE O2 64.9 mmHg (30.0-50.0); VENOUS PH 7.345 UNITS (7.330-7.430); VENOUS STANDARD HCO3 21.8 MMOL/L; VENOUS TOTAL CO2 23.8 MMOL/L (24.0-28.0)
[2025-03-24 10:38] LABS: BASO # 0.0 10^3/uL (0.0-0.2); BASO % 0.2 % (0.0-1.0); EOS # 0.2 10^3/uL (0.0-0.5); EOS % 2.2 % (0.0-3.0); LYMPH # 1.1 10^3/uL (1.5-5.0); LYMPH % 11.7 % (24.0-44.0); MONO # 0.6 10^3/uL (0.0-0.8); MONO % 6.0 % (2.0-8.0); NEUTROPHILS # 7.4 10^3/uL (1.5-8.5); NEUTROPHILS % 79.3 % (36.0-66.0); PLATELET COUNT, AUTOMATED 141 10^3/uL (150-450)
[2025-03-24 10:40] LABS: KETONE, URINE AUTO RFX NEGATIVE (NEGATIVE); LEUKOCYTE ESTERASE UR AUTO RFX NEGATIVE (NEGATIVE); NITRITE, URINE AUTO RFX NEGATIVE (NEGATIVE); RBC, URINE AUTO RFX 0 /HPF (0-3); SQUAM EPITHELIAL CELL UR AURFX 0 /HPF (0-6); WBC, URINE AUTO RFX 0 /HPF (0-3)
[2025-03-24 11:01] LABS: OSMOLALITY SERUM 309.0 MOSM/KG (275-295)
[2025-03-24 11:05] LABS: ACETONE/KETONE 0.14 MMOL/L (0.02-0.27)
[2025-03-24 11:09] LABS: ALT/SGPT 32.0 U/L (7.0-40); AST/SGOT 39.0 U/L (<34); CALCIUM LEVEL 8.6 MG/DL (8.5-10.1); CARBON DIOXIDE LEVEL 21.0 MMOL/L (20-31); CHLORIDE LEVEL 96.0 MMOL/L (98-107); CREATININE FOR GFR 1.73 MG/DL (0.70-1.30); GLOMERULAR FILTRATION RATE 48.1 (>60); POTASSIUM SERUM 4.7 MMOL/L (3.5-5.1); SODIUM LEVEL 129.0 MMOL/L (136-145)
[2025-03-24 11:16] LABS: ESTIMATED AVERAGE GLUCOSE 212.0 MG/DL (60-110)
[2025-03-24] MEDS ORDERED: ISOVUE-370 76% 100 ML VIAL As Ordered ONE (11:51)
[2025-03-24] MEDS: HumuLIN R (REGULAR) INSULIN (NovoLIN R) **100 U/ML** PER UNIT IV ONE (12:09)
[2025-03-24] MEDS: ONDANSETRON 4MG/2ML VIAL IV ONE (12:11)
[2025-03-24] MEDS: ACETAMINOPHEN *IV* 1,000 MG in IV 1 EA IV ONE (12:11)
[2025-03-24] MEDS: NS (Normal Saline) 0.9% 1,000 ML IV ONE (12:22)
[2025-03-24 15:49] VITALS: BP 119/79; TEMP 97.5; O2SAT 94
== END 2025-03-24 15:57 | disposition home or self-care (01) ==
LOC: M ED 09:33
DX: E11.65 Type 2 diabetes mellitus with hyperglycemia (principal); I10 Essential (primary) hypertension; J98.11 Atelectasis; K76.0 Fatty (change of) liver, not elsewhere classified; N28.1 Cyst of kidney, acquired; K42.9 Umbilical hernia without obstruction or gangrene; R16.1 Splenomegaly, not elsewhere classified; K21.9 Gastro-esophageal reflux disease without esophagitis; G47.33 Obstructive sleep apnea (adult) (pediatric); F41.9 Anxiety disorder, unspecified; E78.5 Hyperlipidemia, unspecified; I12.9 Hypertensive chronic kidney disease with stage 1 through stage 4 chronic kidney disease, or unspecified chronic kidney disease; F43.10 Post-traumatic stress disorder, unspecified; Z87.442 Personal history of urinary calculi; Z79.899 Other long term (current) drug therapy
CPT/HCPCS: 74177; 80047; 80048; 80076; 81001; 82010; 82803; 83036; 83690; 83930; 85025; 93005; 93041; 94760; 96365; 96366; 96375; 99285; J0131; J2405; Q9967

== ENCOUNTER → 2025-04-29 | Outpatient (CLI) | payer OTHER, BC ==
[2025-04-29 17:11] LABS: ALT/SGPT 36 U/L (7.0-40); AST/SGOT 30 U/L (<34); CALCIUM LEVEL 9.0 MG/DL (8.5-10.1); CARBON DIOXIDE LEVEL 28 MMOL/L (20-31); CHLORIDE LEVEL 104 MMOL/L (98-107); CHOLESTEROL LEVEL 139 MG/DL (<200); CHOLESTEROL RISK RATIO 4.63 (<5); CREATININE FOR GFR 1.72 MG/DL (0.70-1.30); GLOMERULAR FILTRATION RATE 48.4 (>60); NON-HDL-C 109.0 MG/DL; POTASSIUM SERUM 4.3 MMOL/L (3.5-5.1); SODIUM LEVEL 143 MMOL/L (136-145); TRIGLYCERIDES LEVEL 427 MG/DL (<150)
== END ==
LOC: M LAB 15:27
PROVIDERS: ATTEND Nurse Practitioner Family
DX: E78.2 Mixed hyperlipidemia (principal)